=== PATIENT | female | born 1930 | race Caucasian/White ===

== ENCOUNTER 2019-01-19 13:17 | Emergency (ER) | payer MEDICARE, BC ==
[~2019-01-19] VITALS: Ht 162.6 cm; Wt 69.1 kg
[2019-01-19] MEDS ORDERED: COLACE100 M1 PO (13:41)
[2019-01-19] MEDS ORDERED: PROTONIX TR40 M1 PO (13:41)
[2019-01-19] MEDS ORDERED: SYNTHROID0.05 MG PO (13:41)
[2019-01-19] MEDS ORDERED: BENAZEPRIL HCL5 MG PO (14:00)
[2019-01-19] MEDS ORDERED: ARICEPT10 M1 PO (14:01)
[2019-01-19] MEDS ORDERED: MIRALAX17 GM PO (14:01)
[2019-01-19 14:08] LABS: HEMATOCRIT 37.9 % (37.0-47.0); HEMOGLOBIN 11.5 g/dL (12.5-16.0); MEAN CELL VOLUME 100 fl (78-100); MEAN CORPUSCULAR HEMOGLOBIN 30 pg (27-31); MEAN CORPUSCULAR HGB CONC 30 g/dL (33-37); MEAN PLATELET VOLUME 9.8 fl (7.4-10.4); PLATELET COUNT 216 K/mm3 (130-400); RED BLOOD COUNT 3.81 M/mm3 (4.10-5.30); RED CELL DISTRIBUTION WIDTH 13.9 % (11.5-14.5)
[2019-01-19 14:25] LABS: ALBUMIN 3.6 g/dL (3.4-4.8); CALCIUM 9.6 mg/dL (8.4-10.2); TOTAL BILIRUBIN 0.4 mg/dL (0.2-1.2); TOTAL PROTEIN 6.6 g/dL (6.2-8.1)
[2019-01-19 14:31] LABS: LYMPHOCYTE 5 % (20-51); MONOCYTE 7 % (3-10); NEUTROPHILS 87 % (42-75)
[2019-01-19 15:50] VITALS: BP 93/43
== END 2019-01-19 15:50 | disposition other institution (70) ==
LOC: ED 13:17
PROVIDERS: Family Medicine
DX: J40 Bronchitis, not specified as acute or chronic (principal); F03.90 Unspecified dementia, unspecified severity, without behavioral disturbance, psychotic disturbance, mood disturbance, and anxiety; I63.9 Cerebral infarction, unspecified; J44.9 Chronic obstructive pulmonary disease, unspecified; E11.9 Type 2 diabetes mellitus without complications; E78.5 Hyperlipidemia, unspecified; E03.9 Hypothyroidism, unspecified; Z87.19 Personal history of other diseases of the digestive system; Z87.891 Personal history of nicotine dependence; Z96.651 Presence of right artificial knee joint; Z98.890 Other specified postprocedural states

== ENCOUNTER 2019-09-05 13:15 | Emergency (ER) | payer MEDICARE, BC ==
[~2019-09-05 13:15] MED LIST: ARICEPT10 M1 PO; BENAZEPRIL HCL5 MG PO; BENAZEPRIL10 MG PO; CEFDINIR300 MG PO; CLOPIDOGREL75 M2 PO; COLACE100 M1 PO; DELTASONE20 M1 PO; DONEPEZIL HCL10 MG PO; FERROUS SULFAT325 M4 PO; GOOD NEIGH1200 MG/15 PO; GOOD NEIGHBOR500 M2 PO; IPRATROPIUM BROM3 M1 IH; KAOPECTATE262 MG/15 PO; MAALOX ADVANCE355 M1 PO; MIRALAX17 GM PO; MUCINEX 60600 MG/TA1 PO; MYRBETRIQ25 MG PO; NATURE'S BLEN2000 IU PO; PROTONIX TR40 M1 PO; SYNTHROID0.05 MG PO; TYLENOL 325MG325 MG PO; [UNRECOGNIZED DRUG - OTHER] TOP
[2019-09-05 14:03] LABS: HEMATOCRIT 43.4 % (37.0-47.0); HEMOGLOBIN 13.4 g/dL (12.5-16.0); MEAN CELL VOLUME 95 fl (78-100); MEAN CORPUSCULAR HEMOGLOBIN 29 pg (27-31); MEAN CORPUSCULAR HGB CONC 31 g/dL (33-37); MEAN PLATELET VOLUME 9.7 fl (7.4-10.4); PLATELET COUNT 165 K/mm3 (130-400); RED BLOOD COUNT 4.56 M/mm3 (4.10-5.30)
[2019-09-05 14:10] LABS: ALBUMIN 3.5 g/dL (3.4-4.8); POTASSIUM 4.2 mmol/L (3.5-5.1)
[2019-09-05 14:11] LABS: SODIUM 141 mmol/L (136-145)
[2019-09-05 14:12] LABS: CALCIUM 9.2 mg/dL (8.3-10.5)
[2019-09-05 14:13] LABS: GLUCOSE 107 mg/dL (65-105); TOTAL PROTEIN 6.3 g/dL (6.2-8.1)
[2019-09-05 14:14] LABS: CARBON DIOXIDE 23 mmol/L (23-31); LYMPHOCYTE 3 % (20-51); MONOCYTE 12 % (3-10); NEUTROPHILS 85 % (42-75); OVALOCYTES 1+
[2019-09-05 14:15] LABS: TOTAL BILIRUBIN 0.4 mg/dL (0.2-1.2)
[2019-09-05 14:18] LABS: AST-SGOT 17 U/L (5-34)
[2019-09-05 14:19] LABS: ALT/SGPT 8 U/L (0-55)
[2019-09-05 14:28] LABS: TROPONIN-I < 0.03 ng/mL (<0.030)
[2019-09-05] MEDS ORDERED: ZITHROMAX500 M2 PO (14:34)
[2019-09-05] MEDS ORDERED: ZITHROMAX Z PA250 MG PO (14:34)
[2019-09-05] MEDS ORDERED: NAMENDA10 MG PO (14:35)
[2019-09-05] MEDS ORDERED: CLOPIDOGREL PO (14:36)
[2019-09-05] MEDS ORDERED: NATURAL IRON65 MG PO (14:37)
[2019-09-05] MEDS ORDERED: KAOPECTATE262 MG/15 PO (14:40)
[2019-09-05 15:08] LABS: URINE APPEARANCE CLEAR; URINE COLOR YELLOW
[2019-09-05 15:09] LABS: URINE BILIRUBIN NEGATIVE (NEGATIVE); URINE BLOOD TRACE (NEGATIVE); URINE GLUCOSE NEGATIVE (NEGATIVE); URINE KETONE SMALL (NEGATIVE); URINE LEUKOCYTE ESTERASE NEGATIVE (NEGATIVE); URINE NITRATE NEGATIVE (NEGATIVE); URINE PROTEIN(semi-quant) 1+ mg/dL (NEGATIVE); URINE UROBILINOGEN NORMAL (NORMAL)
[2019-09-05 15:10] LABS: URINE MUCUS PRESENT (NOT PRESENT); URINE WBC 0-1 /hpf (0-3)
[2019-09-05 16:05] VITALS: BP 123/43
== END 2019-09-05 15:50 | disposition other institution (70) ==
LOC: ED 13:15
PROVIDERS: Nurse Practitioner Family
DX: J18.0 Bronchopneumonia, unspecified organism (principal); I63.89 Other cerebral infarction; E86.0 Dehydration; I10 Essential (primary) hypertension; E78.5 Hyperlipidemia, unspecified; E03.9 Hypothyroidism, unspecified; K21.9 Gastro-esophageal reflux disease without esophagitis; F03.90 Unspecified dementia, unspecified severity, without behavioral disturbance, psychotic disturbance, mood disturbance, and anxiety; E11.51 Type 2 diabetes mellitus with diabetic peripheral angiopathy without gangrene; Z79.02 Long term (current) use of antithrombotics/antiplatelets; Z86.73 Personal history of transient ischemic attack (TIA), and cerebral infarction without residual deficits; Z87.891 Personal history of nicotine dependence; Z96.651 Presence of right artificial knee joint
CPT/HCPCS: J7030

== ENCOUNTER 2019-09-05 15:50 | Inpatient (IN) | payer MEDICARE, BC ==
[~2019-09-05] VITALS: Ht 170.2 cm; Wt 68.2 kg
[~2019-09-05 15:50] MED LIST changes: +CLOPIDOGREL PO; +NAMENDA10 MG PO; +NATURAL IRON65 MG PO; +ZITHROMAX Z PA250 MG PO; +ZITHROMAX500 M2 PO
[2019-09-05 16:24] VITALS: BP 123/43
[2019-09-05 18:17] VITALS: BP 123/43
[2019-09-05 22:09] VITALS: BP 121/69
[2019-09-06 02:34] VITALS: BP 145/62
[2019-09-06 05:41] LABS: HEMATOCRIT 44.3 % (37.0-47.0); HEMOGLOBIN 13.3 g/dL (12.5-16.0); MEAN CELL VOLUME 97 fl (78-100); MEAN CORPUSCULAR HEMOGLOBIN 29 pg (27-31); MEAN CORPUSCULAR HGB CONC 30 g/dL (33-37); MEAN PLATELET VOLUME 9.6 fl (7.4-10.4); PLATELET COUNT 146 K/mm3 (130-400); RED BLOOD COUNT 4.58 M/mm3 (4.10-5.30); WHITE BLOOD COUNT 5.4 K/mm3 (4.8-10.8)
[2019-09-06 05:43] VITALS: BP 125/61
[2019-09-06 05:45] LABS: POTASSIUM 4.7 mmol/L (3.5-5.1)
[2019-09-06 05:46] LABS: CALCIUM 8.9 mg/dL (8.3-10.5)
[2019-09-06 05:55] LABS: LYMPHOCYTE 6 % (20-51); MONOCYTE 4 % (3-10); NEUTROPHILS 90 % (42-75); OVALOCYTES 1+
[2019-09-06 09:59] VITALS: BP 91/54
[2019-09-06 14:20] VITALS: BP 85/44
[2019-09-06 18:20] VITALS: BP 115/52
[2019-09-06 21:37] VITALS: BP 91/56
[2019-09-07 02:00] VITALS: BP 90/53
[2019-09-07 05:38] VITALS: BP 114/65
[2019-09-07 10:03] VITALS: BP 145/69
[2019-09-07 14:23] VITALS: BP 113/61
[2019-09-07 18:10] VITALS: BP 121/68
[2019-09-07 22:09] VITALS: BP 100/63
[2019-09-08 01:21] VITALS: BP 128/58
[2019-09-08 06:20] VITALS: BP 126/72
[2019-09-08 07:56] LABS: HEMATOCRIT 42.8 % (37.0-47.0); HEMOGLOBIN 13.1 g/dL (12.5-16.0); MEAN CELL VOLUME 96 fl (78-100); MEAN CORPUSCULAR HEMOGLOBIN 29 pg (27-31); MEAN CORPUSCULAR HGB CONC 31 g/dL (33-37); MEAN PLATELET VOLUME 9.6 fl (7.4-10.4); PLATELET COUNT 190 K/mm3 (130-400); RED BLOOD COUNT 4.48 M/mm3 (4.10-5.30); RED CELL DISTRIBUTION WIDTH 14.8 % (11.5-14.5); WHITE BLOOD COUNT 10.5 K/mm3 (4.8-10.8)
[2019-09-08 08:06] LABS: LYMPHOCYTE 12 % (20-51); MONOCYTE 8 % (3-10); NEUTROPHILS 80 % (42-75); OVALOCYTES 1+
[2019-09-08 08:07] LABS: POTASSIUM 4.1 mmol/L (3.5-5.1)
[2019-09-08 08:09] LABS: CALCIUM 9.1 mg/dL (8.3-10.5)
[2019-09-08 10:20] VITALS: BP 148/67
[2019-09-08 14:20] VITALS: BP 132/68
[2019-09-08 18:20] VITALS: BP 115/50
[2019-09-08 19:42] LABS: URINE APPEARANCE CLEAR; URINE BILIRUBIN NEGATIVE (NEGATIVE); URINE BLOOD NEGATIVE (NEGATIVE); URINE COLOR YELLOW; URINE GLUCOSE NEGATIVE (NEGATIVE); URINE KETONE NEGATIVE (NEGATIVE); URINE LEUKOCYTE ESTERASE NEGATIVE (NEGATIVE); URINE NITRATE NEGATIVE (NEGATIVE); URINE PROTEIN(semi-quant) TRACE mg/dL (NEGATIVE); URINE UROBILINOGEN NORMAL (NORMAL)
[2019-09-08 19:43] LABS: URINE MUCUS PRESENT (NOT PRESENT)
[2019-09-08 22:13] VITALS: BP 101/55
[2019-09-09 02:00] VITALS: BP 114/51
[2019-09-09 06:08] VITALS: BP 154/68
[2019-09-09 10:20] VITALS: BP 166/83
[2019-09-09 14:18] VITALS: BP 116/67
[2019-09-09 17:12] VITALS: BP 102/50
[2019-09-09 22:20] VITALS: BP 131/72
[2019-09-10 02:20] VITALS: BP 147/79
[2019-09-10 06:00] VITALS: BP 161/71
[2019-09-10 10:00] VITALS: BP 101/63
[2019-09-10] MEDS ORDERED: CEFDINIR300 MG PO (12:10)
[2019-09-10] MEDS ORDERED: IPRATROPIUM BROM3 M1 IH (12:11)
[2019-09-10] MEDS ORDERED: FUROSEMIDE40 MG PO (12:11)
[2019-09-10] MEDS ORDERED: MUCINEX 60600 MG/TA1 PO (12:12)
[2019-09-10] MEDS ORDERED: PREDNISONE20 MG PO (12:12)
[2019-09-10 14:20] VITALS: BP 105/58
== END 2019-09-10 15:15 | disposition home health service (06) | DRG 195 ==
LOC: MED/SURG 15:50
PROVIDERS: Family Medicine; ADMIT Nurse Practitioner Family
DX: J18.0 Bronchopneumonia, unspecified organism (principal); F03.90 Unspecified dementia, unspecified severity, without behavioral disturbance, psychotic disturbance, mood disturbance, and anxiety; I10 Essential (primary) hypertension; E03.9 Hypothyroidism, unspecified; K21.9 Gastro-esophageal reflux disease without esophagitis; R09.02 Hypoxemia; E11.51 Type 2 diabetes mellitus with diabetic peripheral angiopathy without gangrene; R33.9 Retention of urine, unspecified; E78.5 Hyperlipidemia, unspecified; J20.9 Acute bronchitis, unspecified; E86.0 Dehydration; Z51.5 Encounter for palliative care; M81.0 Age-related osteoporosis without current pathological fracture; Z86.73 Personal history of transient ischemic attack (TIA), and cerebral infarction without residual deficits; Z96.641 Presence of right artificial hip joint; Z96.651 Presence of right artificial knee joint; Z87.891 Personal history of nicotine dependence; Z88.1 Allergy status to other antibiotic agents; Z88.8 Allergy status to other drugs, medicaments and biological substances
CPT/HCPCS: A4216; C9113; J0456; J0696; J1650; J2930; J7030; J7050; J7512